=== PATIENT | female | born 1955 | race Caucasian/White ===

== ENCOUNTER 2018-03-22 15:33 | Outpatient (REF) | payer OTHER, SELFPAY ==
[2018-03-22 18:48] LABS: HGB 11.7 g/dL (12.0-15.5); Mean Corp. HGB Concentration 33.4 g/dL (32.0-36.0); Mean Corpuscular Hemoglobin 33.8 pg (27.0-33.0); Mean Corpuscular Volume 101.2 fL (80-95); Mean Platelet Volume 10.8 fL (8.0-11.0); Platelet Count 215 x1000/uL (130-400); RBC 3.46 m/cumm (4.00-5.20); RBC Distribution Width 13.9 % (11.7-14.6); White Blood Cell Count 5.71 k/cumm (4.4-10.8)
[2018-03-22 19:07] LABS: ALT 32 U/L (12-78); AST 22 U/L (15-37); Albumin 3.5 g/dL (3.4-5.0); Alkaline Phosphatase 121 U/L (46-116); Anion Gap 6.5 mmol/L (3-11); BUN 72 mg/dL (7-18); Bilirubin, Total 0.4 mg/dL (0.2-1.0); CO2 32.5 mmol/L (21.0-32.0); CREATININE 1.63 mg/dL (0.55-1.02); Calcium 9.2 mg/dL (8.5-10.1); Chloride 100 mmol/L (98-107); Estimated GFR 31.76 (mL/min/1.73m2); Glucose 276 mg/dL (70-100); NT-proBNP 2056 pg/mL; Potassium 4.5 mmol/L (3.5-5.1); Sodium 139 mmol/L (136-145); Total Protein 6.7 g/dL (6.4-8.2)
== END 2018-03-22 15:53 ==
LOC: NCHCN 15:33
PROVIDERS: PCP Family Medicine; Visit Provider Family Medicine
DX: R06.09 Other forms of dyspnea (principal)
CPT/HCPCS: 80053; 85027; 83880

== ENCOUNTER 2018-05-06 01:22 | Outpatient (CLI) | payer OTHER, SELFPAY ==
--- NOTE | 2018-05-06 09:50 | MERGE_ITS ---
*[facility]* *[facility]* [address] [place] [address] Date of study: 05/06/2018 Transthoracic Echocardiography M-mode, complete 2D, complete spectral Doppler, and color Doppler *STUDY CONCLUSIONS* Summary: 1. Left ventricle: The cavity size was normal. Wall thickness was increased in a pattern of mild LVH. Systolic function was normal. The estimated ejection fraction was 55-60%. Wall motion was normal; there were no regional wall motion abnormalities. Doppler parameters are consistent with high ventricular filling pressure. 2. Right ventricle: The cavity size was normal. Systolic function was normal. 3. Aortic valve: Trileaflet; normal thickness leaflets. There was moderate regurgitation. 4. Left atrium: The atrium was moderately dilated. 5. Mitral valve: Moderately calcified annulus. Mildly thickened leaflets. Mobility was restricted. The findings are consistent with mild stenosis. There was moderate regurgitation. 6. Tricuspid valve: There was moderate-severe regurgitation. 7. Pulmonary arteries: Pulmonary systolic pressure was increased > 80mm Hg. 8. Inferior vena cava: The vessel was patent and dilated. The respirophasic diameter changes were blunted (less than 50%), consistent with elevated central venous pressure. *PATIENT PRESENTATION* Height: 162.6cm ((64in) ) S/D Pressure: 111 / 56 Weight: 86.2kg ((189.6lb) ) BSA: 2.01m^2 Test start time: 10:00 AM. Test stop time: 11:00 AM. ORDERING Maggie Carlin REFERRING Maggie Carlin PERFORMING Unknown PERFORMING [facility] [employer]OY[employer]EFITS DIRECTOR Carrol Nishant, RT (R)(CT), RDCS *PROCEDURE DATA* Procedure information: The patient was identified by two identifiers. This study was interpreted by [facility]. Pertinent images and digital data are archived for permanent storage and are available for subsequent review. Comparison was made to the study of 12/03/2016. Study status: Routine. Transthoracic echocardiography. M-mode, complete 2D, complete spectral Doppler, and color Doppler. A Transthoracic Echocardiogram was performed. Scanning was performed from the parasternal, apical, subcostal, and suprasternal notch acoustic windows. Images were obtained using an [id number] cardiac ultrasound machine. Image quality was adequate. Study completion: The patient tolerated the procedure well. There were no complications. History: PMH: JENKINS diastolic dysfunction normal normal EF 5/16 post NSTEMI *CARDIAC ANATOMY* Left ventricle: The cavity size was normal. Wall thickness was increased in a pattern of mild LVH. Systolic function was normal. The estimated ejection fraction was 55-60%. Wall motion was normal; there were no regional wall motion abnormalities. Findings consistent with diastolic dysfunction. Doppler parameters are consistent with high ventricular filling pressure. Aortic valve: Trileaflet; normal thickness leaflets. Mobility was not restricted. Doppler: Transvalvular velocity was within the normal range. There was no stenosis. There was moderate regurgitation. VTI ratio of LVOT to aortic valve: 0.67. Valve area (VTI): 1.8cm^2. Indexed valve area (VTI): 0.9cm^2/m^2. Peak velocity ratio of LVOT to aortic valve: 0.62. Valve area (Vmax): 1.6cm^2. Indexed valve area (Vmax): 0.8cm^2/m^2. Mean velocity ratio of LVOT to aortic valve: 0.71. Valve area (Vmean): 1.9cm^2. Indexed valve area (Vmean): 0.9cm^2/m^2. Mean gradient (S): 6.7mm Hg. Peak gradient (S): 13.3mm Hg. Aorta: Aortic root: The aortic root was normal in size. Ascending aorta: The ascending aorta was normal in size. Mitral valve: Moderately calcified annulus. Mildly thickened leaflets. Mobility was restricted. Doppler: The findings are consistent with mild stenosis. There was moderate regurgitation. Valve area by pressure half-time: 3.8cm^2. Indexed valve area by pressure half-time: 1.9cm^2/m^2. Peak gradient (D): 11mm Hg. Left atrium: The atrium was moderately dilated. Right ventricle: The cavity size was normal. Systolic function was normal. Pulmonic valve: Poorly visualized. Doppler: Transvalvular velocity was within the normal range. There was no evidence for stenosis. There was trivial regurgitation. Tricuspid valve: Structurally normal valve. Doppler: Transvalvular velocity was within the normal range. There was no evidence for stenosis. There was moderate-severe regurgitation. Pulmonary artery: Poorly visualized. Pulmonary systolic pressure was increased > 80mm Hg. Right atrium: The atrium was normal in size. Pericardium: There was no pericardial effusion. Systemic veins: Inferior vena cava: Well visualized. The vessel was patent and dilated. The respirophasic diameter changes were blunted (less than 50%), consistent with elevated central venous pressure. Baseline ECG: Normal sinus rhythm. Measurements Left ventricle Value 12/03/2016 Reference LV ID, ED, PLAX 5.1 cm 4.5 3.5 - 6.0 LV ID, ES, PLAX 3.3 cm 3.4 2.1 - 4.0 LV PW thickness, ED, PLAX 1.2 cm 1.2 LV end-diastolic volume, 88 ml 72 1-p A2C LV end-diastolic volume, 90 ml 60 1-p A4C LV ejection fraction, 1-p 62 % 62 A4C LV e', lateral 0.055 m/sec LV E/e', lateral 30 LV e', medial 0.053 m/sec LV E/e', medial 31 LV e', average 0.054 m/sec LV E/e', average 31 Ventricular septum Value 12/03/2016 Reference IVS thickness, ED, PLAX 1.1 cm 1.0 LVOT Value 12/03/2016 Reference LVOT ID, A-P 1.8 cm 1.8 LVOT area 2.6 cm^2 2.6 LVOT peak velocity, S 1.14 m/sec 1.24 LVOT mean velocity, S 0.87 m/sec LVOT VTI, S 29.0 cm 31.2 LVOT peak gradient, S 5.2 mm Hg 6.2 LVOT mean gradient, S 3.3 mm Hg 3.4 Stroke volume (SV), LVOT 76 ml DP Stroke index (SV/bsa), 38 ml/m^2 LVOT DP Aortic valve Value 12/03/2016 Reference Aortic valve peak 1.8 m/sec velocity, S Aortic valve mean 1.23 m/sec velocity, S Aortic valve VTI, S 43.0 cm Aortic mean gradient, S 6.7 mm Hg Aortic peak gradient, S 13.3 mm Hg VTI ratio, LVOT/AV 0.67 0.56 Aortic valve area, VTI 1.8 cm^2 1.5 Velocity ratio, peak, 0.62 0.62 LVOT/AV Aortic valve area, peak 1.6 cm^2 1.6 velocity Velocity ratio, mean, 0.71 LVOT/AV Aortic valve area, mean 1.9 cm^2 velocity Aortic valve area/bsa, 0.9 cm^2/m^2 mean velocity Aortic regurg deceleration 571 cm/s^2 304 Aortic regurg pressure 171 ms 394 half-time Aorta Value 12/03/2016 Reference Aortic root ID, ED 2.5 cm 2.6 Ascending aorta ID, A-P, S 3.2 cm 3.1 RVOT Value 12/03/2016 Reference RVOT VTI, S 18.6 cm 24.3 Left atrium Value 12/03/2016 Reference LA ID, A-P, ES 4.3 cm LA ID/bsa, A-P 2.1 cm/m^2 <=2.2 LA area, ES, A4C (H) 26.7 cm^2 30 8.8 - 23.4 LA area, ES, A2C 21 cm^2 LA volume/bsa, ES, 1-p A4C 55 ml/m^2 61 LA volume, ES, 2-p 77 ml LA volume/bsa, ES, 2-p 38 ml/m^2 LA/aortic root ratio 1.72 1.47 Mitral valve Value 12/03/2016 Reference Mitral E-wave peak 1.66 m/sec 1.55 velocity Mitral A-wave peak 0.75 m/sec 0.92 velocity Mitral deceleration time 198 ms 150 - 230 Mitral pressure half-time 57 ms 56 Mitral peak gradient, D 11 mm Hg 9.6 Mitral E/A ratio, peak 2.2 1.69 Mitral valve area, PHT, DP 3.8 cm^2 4 Mitral peak LV-LA 88.1 mm Hg 116.2 gradient, S Mitral maximal regurg 4.69 m/sec 5.39 velocity, PISA Mitral regurg VTI, PISA 144.5 cm Pulmonary veins Value 12/03/2016 Reference Pulmonary vein peak 0.58 m/sec 0.65 velocity, S Pulmonary vein peak 0.98 m/sec 0.67 velocity, D Pulmonary vein velocity 0.59 0.97 ratio, peak, S/D Tricuspid valve Value 12/03/2016 Reference Tricuspid regurg peak 4.4 m/sec 3.4 velocity Tricuspid peak RV-RA 75.7 mm Hg 45.1 gradient Right atrium Value 12/03/2016 Reference RA area, ES, A4C 19.2 cm^2 14.5 8.3 - 19.5 Legend: (L) and (H) elle values outside specified reference range. I have personally reviewed the images and have reviewed and edited the reported findings. Electronically signed by Anatoly Be 05/06/2018 12:28
== END 2018-05-06 01:42 ==
PROVIDERS: PCP Family Medicine; Visit Provider Family Medicine
DX: R06.09 Other forms of dyspnea (principal); I25.10 Atherosclerotic heart disease of native coronary artery without angina pectoris; I50.30 Unspecified diastolic (congestive) heart failure
CPT/HCPCS: 93306

== ENCOUNTER 2018-05-10 09:45 | Outpatient (CLI) | payer BC, SELFPAY | END 2018-05-10 10:05 | PROVIDERS: PCP Family Medicine; Visit Provider Internal Medicine Interventional Cardiology | DX: I25.10 Atherosclerotic heart disease of native coronary artery without angina pectoris (principal); R06.02 Shortness of breath; I11.9 Hypertensive heart disease without heart failure; N18.3 Chronic kidney disease, stage 3 (moderate) | CPT/HCPCS: 93005; 93010 ==

== ENCOUNTER 2018-05-17 08:34 | Outpatient (CLI) | payer BC, SELFPAY ==
[2018-05-17 10:17] LABS: HCT 37.5 % (36.0-46.0); HGB 12.4 g/dL (12.0-15.5); Mean Corp. HGB Concentration 33.1 g/dL (32.0-36.0); Mean Corpuscular Hemoglobin 33.2 pg (27.0-33.0); Mean Corpuscular Volume 100.3 fL (80-95); Mean Platelet Volume 10.3 fL (8.0-11.0); Platelet Count 203 x1000/uL (130-400); RBC 3.74 m/cumm (4.00-5.20); RBC Distribution Width 13.6 % (11.7-14.6); White Blood Cell Count 6.92 k/cumm (4.4-10.8)
[2018-05-17 10:40] LABS: Anion Gap 10.4 mmol/L (3-11); CO2 30.6 mmol/L (21.0-32.0); CREATININE 2.07 mg/dL (0.55-1.02); Calcium 9.3 mg/dL (8.5-10.1); Chloride 97 mmol/L (98-107); Estimated GFR 24.11 (mL/min/1.73m2); Glucose 180 mg/dL (70-100); NT-proBNP 2850 pg/mL; Potassium 3.7 mmol/L (3.5-5.1); Sodium 138 mmol/L (136-145)
[2018-05-17 11:23] LABS: BUN 98 mg/dL (7-18)
== END 2018-05-17 08:54 ==
PROVIDERS: PCP Family Medicine; Visit Provider Internal Medicine Interventional Cardiology
DX: R07.9 Chest pain, unspecified (principal); R06.02 Shortness of breath; I25.10 Atherosclerotic heart disease of native coronary artery without angina pectoris; N18.3 Chronic kidney disease, stage 3 (moderate)
CPT/HCPCS: 36415; 80048; 85027; 83880

== ENCOUNTER 2018-05-17 09:56 | Outpatient (CLI) | payer BC, SELFPAY | END 2018-05-17 10:16 | PROVIDERS: PCP Family Medicine; Visit Provider Internal Medicine Interventional Cardiology | DX: I25.10 Atherosclerotic heart disease of native coronary artery without angina pectoris (principal); R06.02 Shortness of breath; I50.9 Heart failure, unspecified; Z95.818 Presence of other cardiac implants and grafts | CPT/HCPCS: 93005; 93010 ==

== ENCOUNTER 2018-06-21 11:23 | Outpatient (REF) | payer BC, SELFPAY ==
[2018-06-21 12:54] LABS: COMMENT (LAB VIEW ONLY) 64.13 mg/dL; Microalb ug/mg Crea 4.2 ug/mg Cr
== END 2018-06-21 11:43 ==
LOC: NCHCN 11:23
PROVIDERS: PCP Family Medicine; Visit Provider Family Medicine
DX: E10.9 Type 1 diabetes mellitus without complications (principal)
CPT/HCPCS: 82043; 82570